=== PATIENT | male | born 1985 | race Caucasian/White ===

== ENCOUNTER 2016-08-27 09:42 | Emergency (ER) | payer OTHER ==
[~2016-08-27] VITALS: Ht 185.4 cm; Wt 87.6 kg
[~2016-08-27 09:42] MED LIST: MULTTAB58 PO
[2016-08-27 09:54] VITALS: TEMP 36.6; Ht 185.4 cm; Wt 87.6 kg
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
[2016-08-27 10:24] LABS: HEMATOCRIT 43.6 % (42-52); MEAN CELL VOLUME 82.3 fL (80-100); MEAN CORPUSCULAR HEMOGLOBIN 28.5 pg (25-34); MEAN CORPUSCULAR HGB CONC 34.6 g/dl (32-36); MEAN PLATELET VOLUME 9.9 fL (7.4-10.4); PLATELET COUNT 239 K/uL (130-400); WHITE BLOOD COUNT 11.43 K/uL (4.8-10.8)
[2016-08-27 10:43] LABS: URINE APPEARANCE CLOUDY (CLEAR); URINE BILIRUBIN NEG (NEG); URINE COLOR DK YELLOW; URINE NITRITE NEG (NEG); URINE SPECIFIC GRAVITY 1.035 (1.000-1.030); UROBILINOGEN NEG (NEG); ZZUR CULT IF INDIC CLEAN CATCH NO
[2016-08-27 10:47] LABS: MANUAL MICROSCOPIC REQUIRED? NO; REVIEW REQ? NO
[2016-08-27 11:07] LABS: BENZODIAZEPINE, URINE POS (NEG); COCAINE,URINE POS (NEG); PHENCYCLIDINE, URINE NEG (NEG)
[2016-08-27 11:20] VITALS: BP 121/77; PULSE 89; O2SAT 100
[2016-08-27] MEDS ORDERED: CLON0.1T12 PO (11:54)
[2016-08-31 19:22] LABS: COCAINE, URINE >250000 NG/ML (CUTOFF=100); HYDROXYETHYLFLURAZEPAM CONF NEGATIVE NG/ML (CUTOFF=50); HYDROXYMIDAZOLAM NEGATIVE NG/ML (CUTOFF=50); HYDROXYTRIAZOLAM CONF NEGATIVE NG/ML (CUTOFF=50); TEMAZEPAM CONF NEGATIVE NG/ML (CUTOFF=50)
== END 2016-08-27 12:07 | disposition home or self-care (01) ==
LOC: EDBD 09:42 → C.EDB 09:46
DX: S01.81XA Laceration without foreign body of other part of head, initial encounter (principal); S80.812A Abrasion, left lower leg, initial encounter; S30.811A Abrasion of abdominal wall, initial encounter; V47.0XXA Car driver injured in collision with fixed or stationary object in nontraffic accident, initial encounter; Y93.89 Activity, other specified; Y99.8 Other external cause status; R19.7 Diarrhea, unspecified; E11.9 Type 2 diabetes mellitus without complications